=== PATIENT | female | born 2000 | race Caucasian/White ===

== ENCOUNTER 2020-03-11 15:28 | Outpatient (CLI) | payer OTHER ==
[~2020-03-11] VITALS: Ht 154.9 cm; Wt 54.0 kg
[2020-03-11] MEDS ORDERED: PRENTAB9 PO (15:56)
[2020-03-11] MEDS ORDERED: MAPA500T2 PO (15:56)
[2020-03-11] MEDS ORDERED: ZOFR4TAB16 PO (15:56)
[2020-03-11 17:18] LABS: APPEARANCE, URINE HAZY (CLEAR); BACTERIA, URINE AUTO NEGATIVE (NEGATIVE); BILIRUBIN, URINE AUTO NEGATIVE (NEGATIVE); BLOOD, URINE BLOOD NEGATIVE (NEGATIVE); COLOR, URINE YELLOW (YELLOW); GLUCOSE, URINE (UA) AUTO NEGATIVE (NEGATIVE); KETONE, URINE AUTO NEGATIVE (NEGATIVE); LEUKOCYTE ESTERASE, URINE AUTO 3+ (NEGATIVE); NITRITE, URINE AUTO NEGATIVE (NEGATIVE); PROTEIN, URINE AUTO NEGATIVE (NEGATIVE); RBC, URINE AUTO 4 /HPF (0-3); SQUAMOUS EPITHELIAL CELL UR AU 10 /HPF (0-6); UROBILINOGEN, URINE AUTO 0.2 mg/dL (0.0-2.0); WBC, URINE AUTO 3 /HPF (0-3)
--- NOTE | 2020-03-11 17:58 | IPNPDOC ---
Text Note Date of Service The patient was seen on 03/11/20. NOTE patient is a 19 yo @22+2wks gestation presents with concern for feeling lower abdominal cramping and vaginal pressure since this AM. denies LOF/VB. +FM. vitals: normal NAD ABD: gravid, soft, nt le: no edema/erythema/tenderness speculum: clumpy green discharge, no lesion, nt cervix visually long and closed, no lesion, non tender doptone: 150's toco: quiet Laboratory Tests 03/11/20 16:10: Urine Color YELLOW, Urine Appearance HAZY, Urine pH 7.0, Urine Specific Tatum 1.010, Urine Protein NEGATIVE, Urine Glucose (Auto)(UA) NEGATIVE, Urine Ketones (Auto) NEGATIVE, Urine Blood NEGATIVE, Urine Nitrite NEGATIVE, Urine Bilirubin NEGATIVE, Urine Urobilinogen 0.2, Urine Leukocyte Esterase (Auto) 3+H, Urine WBC (Auto) 3, Urine RBC (Auto) 4H, Urine Hyaline Casts (Auto) 0, Urine Bacteria (Auto) NEGATIVE, Urine Squamous Epithelial Cells 10, Urine Sperm (Auto) 03/11/20 17:34: Chlamydia trachomatis DNA (SOTERO) [Pending], Neisseria gonorrhoeae DNA (SOTERO) [Pending], Trichomonas vaginalis (PCR) [Pending] Microbiology 03/11/20 Wet Prep - Final, Complete wet prep: pos clue cells and pos yeast a/p patient is a 19 yo @ 22+2wks with vaginal yeast and bacterial vaginosis. treat with diflucan and flagyl. return precautions given. f/u with regularly scheduled clinic appointment. DO KELLY Falcon LUAT N. DO Mar 11, 2020 17:31
[2020-03-11] MEDS ORDERED: metroNIDAZOLE (FLAGYL) 500 MG TAB PO ONE (18:00)
[2020-03-11] MEDS ORDERED: FLUCONAZOLE 50MG TABLET PO ONE (18:00)
[2020-03-11 19:42] LABS: CHLAMYDIA DNA AMPLIFICATION NEGATIVE (NEGATIVE); GC DNA AMPLIFICATION NEGATIVE (NEGATIVE)
== END 2020-03-11 18:24 | disposition home or self-care (01) ==
LOC: M LDO 15:28
PROVIDERS: ATTEND Advanced Practice Midwife
DX: O26.892 Other specified pregnancy related conditions, second trimester (principal); R10.30 Lower abdominal pain, unspecified; O23.592 Infection of other part of genital tract in pregnancy, second trimester; Z3A.22 22 weeks gestation of pregnancy
CPT/HCPCS: 81001; 87086; 87210; 87661; G0378; G0463

== ENCOUNTER 2020-03-29 00:17 | Outpatient (CLI) | payer OTHER ==
[~2020-03-29] VITALS: Ht 154.9 cm; Wt 125.0 kg
[2020-03-29] VITALS (9 sets, daily range): BP systolic 95–114; BP diastolic 44–82
[~2020-03-29 00:17] MED LIST: MAPA500T2 PO; PRENTAB9 PO; ZOFR4TAB16 PO
[2020-03-29 00:59] LABS: APPEARANCE, URINE CLEAR (CLEAR); BACTERIA, URINE AUTO NEGATIVE (NEGATIVE); BILIRUBIN, URINE AUTO NEGATIVE (NEGATIVE); BLOOD, URINE BLOOD NEGATIVE (NEGATIVE); COLOR, URINE YELLOW (YELLOW); GLUCOSE, URINE (UA) AUTO NEGATIVE (NEGATIVE); KETONE, URINE AUTO NEGATIVE (NEGATIVE); LEUKOCYTE ESTERASE, URINE AUTO 1+ (NEGATIVE); MUCUS, URINE SMALL (NEGATIVE); NITRITE, URINE AUTO NEGATIVE (NEGATIVE); PROTEIN, URINE AUTO NEGATIVE (NEGATIVE); RBC, URINE AUTO 1 /HPF (0-3); SPECIFIC GRAVITY URINE AUTO 1.019 (1.002-1.035); SQUAMOUS EPITHELIAL CELL UR AU 1 /HPF (0-6); UROBILINOGEN, URINE AUTO 0.2 mg/dL (0.0-2.0); WBC, URINE AUTO 5 /HPF (0-3)
--- NOTE | 2020-03-29 01:57 | REPVR ---
PROCEDURE INFORMATION: Exam: US Retroperitoneal Limited, Kidneys Exam date and time: 03/29/2020 1:40 AM Age: 19 years old Clinical indication: Pain; Other: Back; ; Additional info: 19yo 24wk preg back pain, HX R stent in prior preg TECHNIQUE: Imaging protocol: Real-time ultrasound of the retroperitoneum with image documentation. Examination was focused on the kidneys. COMPARISON: No relevant prior studies available. FINDINGS: Right kidney: No stones. No hydronephrosis. Left kidney: No stones. No hydronephrosis. Uterus: heart rate 160 bpm. Cervix closed 2.8 cm. Bladder: Unremarkable bladder. IMPRESSION: Unremarkable kidneys. Electronically signed by: Perry Henriquez On 03/29/2020 01:56:59 AM
[2020-03-29] MEDS ORDERED: diphenhydrAMINE 25MG CAP PO ONE (03:45)
[2020-03-29] MEDS ORDERED: BETAMETHASONE SOLUSPAN 6MG/ML 5ML VIAL (J0702 PER 3MG) IM SCH (03:45)
[2020-03-29] MEDS ORDERED: NIFEdipine 10 MG CAP PO PRN (03:45)
[2020-03-29] MEDS ORDERED: ONDANSETRON 4MG/2ML VIAL IV PRN (03:45)
[2020-03-29] MEDS ORDERED: TERBUTALINE SULFATE 1 MG/ML VIAL (J3105) SC SCH (03:45)
[2020-03-29] MEDS ORDERED: ACETAMINOPHEN TAB 650MG DOSE (2X325MG) PO PRN (03:45)
[2020-03-29] MEDS ORDERED: NIFEdipine 10 MG CAP PO ONE (03:45)
[2020-03-29 04:08] LABS: BASO # 0.1 10^3/uL (0.0-0.2); BASO % 0.4 % (0.0-1.0); EOS # 0.2 10^3/uL (0.0-0.5); HEMATOCRIT 25.7 % (36.0-47.0); HEMOGLOBIN 8.3 g/dl (12.0-15.5); LYMPH # 3.6 10^3/uL (1.5-5.0); LYMPH % 20.8 % (24.0-44.0); MEAN CORPUSCULAR HEMOGLOBIN 28.7 pg (27.0-33.0); MEAN CORPUSCULAR HGB CONC 32.3 g/dl (32.0-36.5); MEAN CORPUSCULAR VOLUME 88.9 fl (80.0-96.0); MONO % 5.7 % (0.0-5.0); NEUTROPHILS # 12.3 10^3/uL (1.5-8.5); NEUTROPHILS % 71.4 % (36.0-66.0); PLATELET COUNT, AUTOMATED 238 10^3/uL (150-450); RED BLOOD COUNT 2.89 10^6/uL (4.00-5.40); WHITE BLOOD COUNT 17.2 10^3/uL (4.0-10.0)
--- NOTE | 2020-03-29 05:16 | REPVR ---
PROCEDURE INFORMATION: Exam: US TRANSABD PLUS DETAILED EVAL FIRST GEST and US , Transvaginal Exam date and time: 03/29/2020 4:43 AM Age: 19 years old Clinical indication: Lmp or gestational age (in weeks): 24w 6d; Labor and delivery abnormalities; Pre-term labor; Without delivery; ; Additional info: 19yo w/siup 24w2d with ptl, no anatomy scan yet TECHNIQUE: Imaging protocol: Real-time transabdominal obstetrical ultrasound of the maternal pelvis and a first trimester with image documentation. COMPARISON: RENAL US 2020-03-29 01:20 FINDINGS: Gestation: Single living intrauterine gestation. Heart rate: 147 bpm. Presentation: Breech presentation Placenta: Unremarkable. No subchorionic bleed. Placenta is anterior. Amniotic fluid: Amniotic fluid is normal for gestational age. ANATOMY: Cerebellum: Normal Cisterna magna: Normal Cerebral ventricles: Normal Upper lip and nose: Normal Heart four-chamber view, heart size and position: Partially obscured, RVOT not seen due to lie. impression. Kidneys: Normal Stomach: Normal Bladder: Normal Umbilical cord vessel number: Normal three-vessel cord Spine: Normal Arms and legs: Normal Gender: Female BIOMETRY: Estimated gestational age: 24 weeks and 3 days Estimated due date: 07/16/2020 Estimated weight: 689 g corresponding to 1 lb and 8 oz, 30% tile Biparietal diameter: 5.9 cm corresponding to 24 weeks and 1 day. Head circumference: 22.2 cm corresponding to 24 weeks and 2 days MATERNAL ANATOMY: Uterus: Unremarkable. Cervix: The cervix image transvaginally measures 1.1 cm with funneling of the cervix noted measuring 2 x 1.5 cm. Right adnexa: Ovary is obscured by overlying bowel gas. Left adnexa: Ovary is obscured by overlying bowel gas. IMPRESSION: 1. Single live intrauterine gestation. 2. The cervix image transvaginally measures 1.1 cm with funneling of the cervix noted measuring 2 x 1.5 cm. Electronically signed by: Perry Henriquez On 03/29/2020 05:16:25 AM
[2020-03-29 05:17] LABS: CHLAMYDIA DNA AMPLIFICATION NEGATIVE (NEGATIVE); GC DNA AMPLIFICATION NEGATIVE (NEGATIVE)
[2020-03-29] MEDS ORDERED: LR 1,000 ML IV SCH (07:55)
[2020-03-29] MEDS ORDERED: VANCOMYCIN HCL 1,000 MG, VIAL MATE ADAPTER 1 EACH in D5W 250 ML IV SCH (08:00)
[2020-03-29] MEDS ORDERED: MAG Sulf (L&D) 4 GM/100 ML 4 GM in IV 1 EA IV ONE (08:00)
[2020-03-29] MEDS ORDERED: VANCOMYCIN HCL 1,000 MG, VIAL MATE ADAPTER 1 EACH in D5W 250 ML IV STA (08:00)
[2020-03-29] MEDS ORDERED: MAG Sulf (OBGYN) 20GM/500ML 20,000 MG in IV 1 EA IV SCH ×2 (08:15→09:15)
--- NOTE | 2020-03-29 08:42 | HPE ---
DATE OF ADMISSION: 03/29/2020 This girl is a 19-year-old 2, para 1, last medical period (LMP) 09/19/2019 estimated date of confinement (EDC) July 13, 2020 based on an early ultrasound at 10 weeks 0 days. She is presently a 24 and 6 weeks of gestation. Was seen 12 hours ago with low back pain, lower abdominal pain, which was felt to be at that time a kidney stone. She had a previous history of kidney stones in her last . She has short interval gestation. She delivered at 37 weeks, April 2019, a live 6 pounds 6 ounces. After having had multiple kidney stones with a stent, she had labor at 30 weeks which was suppressed until 37 weeks. She is Rh negative. Has not received RhoGAM at the present time. When she arrived there was some minimal to mild contractions. She had a urine done indicating specific gravity 1.019, all was negative. She had a little bit of leukocyte esterase trace 1+, 5 white cells, lot of mucus. No bacteria. Her CBC: Her hemoglobin was 8.3, hematocrit 25.7 and platelets were 238. Her vital signs on admission temperature 97.4, subsequently her temperatures have been normal at 97.1. Her blood pressure is 108/67. Her pulse was 108 and her respirations are 18. She had a ultrasound initially which showed good jets. No evidence of kidney stone and it was breech presentation with placenta anterior. No subchorionic bleeding. Appropriate interval 24 and 2 weeks of gestation, estimated weight was 689 grams 1 pound 8 ounces. On examination of the cervix by ultrasound transvaginally, it was 1.1 cm with some funneling. The noted lengths previously was 2 cm. BAKARI was within normal limits. She has good reactive strip for 24 weeks and 6 days, minimal uterine irritability. She was given terbutaline, which resolved some of the cramping in her lower back. She is Rh negative O. She has been COVID tested pending the results. She has no symptoms of COVID-19. She was given betamethasone mag sulfate 4 grams for neural prophylaxis and vancomycin one dose as she had an allergic reaction with rash when she was much younger and the safer route was the vancomycin. GBS culture is pending weeks. We explained the risks and benefits to the patient about staying here versus going to [place]. We discussed the case with Dr. Daly who accepted the patient. We will re-evaluate the patient's cervix prior to leaving for [place]. Both the patient and , over the phone, expressed understanding of the reason for transfer and the risks for transfer and the benefits. We now await [facility] transport.
--- NOTE | 2020-03-29 08:52 | IPNPDOC ---
Text Note Date of Service The patient was seen on 03/29/20. NOTE Late entry- see Dr. Ross's dictated note for final plan of care after anatomy scan was performed and patient continued to have ctx (transfer to [place]) Triage Note, decision for Observation vs Admission Seferino is a 19yo with SIUP at 24w2d presenting with "low back pain that feels similar to the pain I had previously when I needed a stent for kidney stones in my prior ". She states the pain started suddenly and woke her from sleep, about an hour before she called me and I instructed her to come in. The pain is in her low back (where she points) and is constant, does not radiate. She has had no LOF, no contractions that she feels, has good movement, no vaginal bleeding. No fevers/chills. No pain with urination. No abnormal vaginal discharge. She has hx of prior term delivery at 37wk a year ago (though they "stopped my labor a few times when I was pre-term"). 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): 2/50/high SSE (done after SCE given concerning exam): NEFG, normal appearing physiologic vaginal discharge, cervix visually 2cm dilated (membranes seen through os), swab obtained for OLGA LIDIA/WP and GBS swab performed NST: reassuring for gestational age with bl 140, +accels, -decels, mod georgette Loyall: irregular ctx vs uterine irritability Labs: Urinalysis- no blood, 5 WBC, small leuk esterase, no bacteria, negative nitrite OLGA LIDIA/WP performed by me: no evidence of trichomonas, budding yeast/hyphae or clue cells Radiology: Renal ultrasound- no e/o hydronephrosis or nephrolithiasis bilaterally, cervical length done transabdominally 2.8cm Assessment: Seferino is a 19yo with SIUP at 24w2d with atypical presentation of PTL (back discomfort) having negative workup for nephrolithiasis (which she had in prior ), but having cervical dilation 2/50/high with membranes visible through cervix on SSE. No evidence of infection of urine or vagina. Reassuring status. Vitals wnl. Plan: -Discussed with patient plan for observation vs admission at this time given concern for PTL -Patient has not had anatomy scan yet and I would like growth scan, so ordered this with cervical length -Betamethasone 12mg IM x1 now and repeat in 24hr -Terbutaline x1 dose SQ now -Nifedipine 20mg PO now and repeat 10mg Q6hr prn in the setting of ctx -Will hold off on IV abx and MgSO4 unless it looks like patient is progressing in PTL -CBC, type and screen, syphilis labs -Regular diet for now -PNV daily, zofran prn nausea, tylenol prn pain, benadryl prn insomnia -urine culture pending -GBS pending -Safe to proceed Dr. Alison Shook MD VS,Jamaal, I+O VS, Jamaal I+O Laboratory Tests 03/29/20 03:52 Vital Signs Date Time Temp Pulse Resp B/P (MAP) Pulse Ox O2 Delivery O2 Flow Rate FiO2 03/29/20 07:27 97.1 121 18 107/65 (79) Alison Shook MD March 29, 2020 08:52
[2020-03-29] MEDS ORDERED: PRENATAL VITAMINS CHEWABLE TABLET PO SCH (09:00)
[2020-03-29] MEDS ORDERED: NS 1,000 ML IV SCH (09:15)
== END 2020-03-29 09:50 | disposition short-term general hospital (02) ==
LOC: M LDO 00:17
PROVIDERS: ATTEND Obstetrics & Gynecology
DX: O26.892 Other specified pregnancy related conditions, second trimester (principal); M54.5 Low back pain; O26.872 Cervical shortening, second trimester; O60.12X1 Preterm labor second trimester with preterm delivery second trimester, fetus 1; Z3A.24 24 weeks gestation of pregnancy
CPT/HCPCS: 59025; 76775; 76811; 76817; 81001; 85025; 86780; 86850; 86900; 86901; 87081; 87086; 87491; 87591; 96372; 96374; 96375; G0378; G0463; J0702; J3105; J3370; J3475; U0002

== ENCOUNTER 2020-04-18 18:07 | Outpatient (CLI) | payer OTHER ==
--- NOTE | 2020-04-18 18:47 | IPNPDOC ---
Text Note Date of Service The patient was seen on 04/18/20. NOTE patient is a 19 yo @ 27+5wks gestation presents with concern for decreased movement since this AM. patient had some discharge yesterday that resolved. She denies cramping/vb/lof/discharge today. denies recent coitus. patient had admission @ 24wks with concern for shortened cervix. vitals: normal NAD abd: gravid, soft, nt back nttp fht: 145/mod georgette/pos accel/no decel Pixley: quiet a/p patient is @ 27+5wks, doing well, NST reassuring for gestational age. counseled patient on continue with light activities and vaginal rest. return precautions given. f/u in clinic as scheduled. DO KELLY Falcon LUAT N. DO April 18, 2020 18:47
== END 2020-04-18 18:50 ==
LOC: M LDO 18:07
PROVIDERS: ATTEND Obstetrics & Gynecology
DX: O36.8120 Decreased fetal movements, second trimester, not applicable or unspecified (principal); Z3A.27 27 weeks gestation of pregnancy
CPT/HCPCS: G0378; G0463

== ENCOUNTER → 2020-04-21 | Outpatient (CLI) | payer OTHER ==
--- NOTE | 2020-04-22 07:09 | REP ---
Clinical: Anatomical evaluation. Comparison: 02/28/2020 . Findings: Examination demonstrates a single live intrauterine in cephalic presentation. motion is identified by technologist. Placenta is noted posterior/fundal and grade zero without evidence for placenta previa or abruption. Amniotic fluid volume is normal. Cervix measures 1.1 cm in length and appears closed. No evidence for nuchal cord. Gestational age by LMP 28 weeks 1 day with DONNY 07/13/2020 . Gestational age by current measurements 28 weeks 2 days with DONNY 07/12/2020 . FHR equals 147 beats per minute. Amniotic fluid index: 14.0 cm Estimated weight 1214 grams ( 48th percentile). Anatomical assessment demonstrates normal structures including cranium, choroid plexus, cavum, cerebellum/posterior fossa, facial features, lungs, four-chamber heart/ventricular outflow tracts, diaphragm, stomach, cord insertion/three-vessel cord, kidneys/bladder, spine, and extremities. Impression: 1. Closed cervical length of the 1.1 cm noted. 2. Anatomical assessment is complete and normal. Electronically Signed by Armani Mazariegos MD 04/22/2020 07:00 A
== END ==
LOC: M RAD 07:47
PROVIDERS: ATTEND Obstetrics & Gynecology
DX: Z36.89 Encounter for other specified antenatal screening (principal); Z3A.28 28 weeks gestation of pregnancy

== ENCOUNTER 2020-05-03 11:55 | Outpatient (CLI) | payer OTHER ==
[~2020-05-03] VITALS: Ht 154.9 cm; Wt 54.2 kg
[2020-05-03 12:23] VITALS: BP 104/63
--- NOTE | 2020-05-03 14:05 | REP ---
Clinical: Possible ruptured membranes. Comparison: None . Findings: Examination demonstrates a single live intrauterine in cephalic presentation. motion is identified by technologist. Placenta is noted posterior and grade I without evidence for placenta previa or abruption. Amniotic fluid volume is normal. Cervix measures 1.1 cm in length. No evidence for nuchal cord. Gestational age by LMP 29 weeks 6 days with DONNY 07/13/2020 . FHR equals 144 beats per minute. Amniotic fluid index: 16.0 cm Umbilical cord SD ratio: 2.16 (2.50 - 3.50) Impression: Incompetent cervix measuring 11 mm. Amniotic fluid volume within normal limits. Electronically Signed by Armani Mazariegos MD 05/03/2020 01:58 P
[2020-05-03] MEDS ORDERED: SYNT25TA PO (14:55)
[2020-05-03] MEDS ORDERED: MAGNESIUM *L&D* 4GM/100ML BAG (40MG/ML) As Ordered ONE (15:34)
[2020-05-03] MEDS ORDERED: VANCOMYCIN 1000MG/20ML VIAL As Ordered ONE (15:34)
[2020-05-03 15:43] LABS: HEMATOCRIT 30.5 % (36.0-47.0); HEMOGLOBIN 9.9 g/dl (12.0-15.5); MEAN CORPUSCULAR HEMOGLOBIN 30.1 pg (27.0-33.0); MEAN CORPUSCULAR HGB CONC 32.5 g/dl (32.0-36.5); MEAN CORPUSCULAR VOLUME 92.7 fl (80.0-96.0); PLATELET COUNT, AUTOMATED 177 10^3/uL (150-450); RED BLOOD COUNT 3.29 10^6/uL (4.00-5.40); WHITE BLOOD COUNT 13.5 10^3/uL (4.0-10.0)
[2020-05-03] MEDS ORDERED: VANCOMYCIN HCL 1,000 MG, VIAL MATE ADAPTER 1 EACH in D5W 250 ML IV ONE (15:45)
[2020-05-03] MEDS ORDERED: VANCOMYCIN 1000MG/20ML VIAL IV ONE (15:45)
[2020-05-03] MEDS ORDERED: MAGNESIUM *L&D* 4GM/100ML BAG (40MG/ML) IV ONE (15:45)
--- NOTE | 2020-05-03 16:15 | HPE ---
DATE OF ADMISSION: 05/03/2020 This lady is a 19-year-old, 2, para 1, last menstrual period (LMP) 09/19/2019, estimated date of confinement (EDC) 07/13/2020, at 29 and 6 weeks of gestation with history of spontaneous rupture of membranes. No contractions. Risk factors is she is hypothyroid, anemic. She has depression. She has had spontaneous rupture of membranes and she has had a shortened cervix since 24 weeks, 1.1 cm PAST HISTORY: April of 2019, 37 weeks, delivered a live . Had a stent in because of kidney stones. She had short interval . Labs are O negative, HIV negative, hepatitis negative, RPR negative. Varicella immune. Urine is mixed belkis. Gonorrhea and chlamydia ARE negative. She did not do her 1-hour GTT. On 03/29/2020, she was in labor and delivery because of query kidney stone. She was worked up but did not have any kidney stone. Had some at labor. Ultrasound revealed shortened cervix of 1.1 cm with no funneling. She was given terbutaline, given betamethasone, given vancomycin (she is ALLERGIC TO PENICILLIN) and 4 grams of magnesium sulfate for neuro prophylaxis. She was then transferred up to [place] for 8 days, after which time they sent her home. She came in this afternoon with questionable rupture of membranes. On examination, symphysis fundus height is 29, vertex presenting. Category 1 strip on ultrasound. No contractions were noted. Sterile speculum examination, Nitrazine was positive, fern was positive. She had wetness on her underwear, which also was Nitrazine positive. We did an ultrasound. Indicated a vertex presentation, heart at 144, active. The amniotic fluid index (BAKARI) subjectively was normal and it was approximately 15 cm. Cervix was again 1.1 cm with questionable funneling although was not able to tell vertex presenting. Her blood pressure 104/63, respirations 18, pulse 146, temperature 97.2. COVID status testing was done and questionnaire was negative. We discussed transfer of care of this patient with [facility] who are willing to accept her, Dr. Daly to labor and delivery. We initiated vancomycin 1000 mg IV because of premature rupture of membranes, magnesium sulfate 4 grams IV times one dose for neuro prophylaxis. She still is probably covered for betamethasone having had two doses prior to leaving [place], and COVID testing is pending. In summary, we have a with premature rupture of membranes not in active labor for transfer to [facility]. CAESAR
[2020-05-04] MEDS ORDERED: ZOLO50TA PO (01:04)
[2020-05-04] MEDS ORDERED: VITA500C24 PO (01:40)
[2020-05-04] MEDS ORDERED: IRON1TAB2 PO (01:42)
== END 2020-05-03 16:52 | disposition other institution (70) ==
LOC: M LDO 11:55
PROVIDERS: ATTEND Obstetrics & Gynecology
DX: O26.893 Other specified pregnancy related conditions, third trimester (principal); N89.8 Other specified noninflammatory disorders of vagina; O34.33 Maternal care for cervical incompetence, third trimester; O42.913 Preterm premature rupture of membranes, unspecified as to length of time between rupture and onset of labor, third trimester; Z3A.29 29 weeks gestation of pregnancy
CPT/HCPCS: 36415; 59025; 76815; 76820; 85027; 86850; 86900; 86901; 96365; 96375; G0378; G0463; J3370; J3475; U0002

== ENCOUNTER 2020-05-04 00:38 | Inpatient (IN) | payer OTHER ==
[2020-05-04] VITALS (39 sets, daily range): BP systolic 64–114; BP diastolic 36–74
[~2020-05-04] VITALS: Ht 154.9 cm; Wt 56.7 kg
[~2020-05-04 00:38] MED LIST changes: +SYNT25TA PO
[2020-05-04] MEDS ORDERED: ZOLO50TA PO (01:04)
[2020-05-04] MEDS ORDERED: VITA500C24 PO (01:40)
[2020-05-04] MEDS ORDERED: IRON1TAB2 PO (01:42)
[2020-05-04] MEDS: LR 1,000 ML IV SCH ×3 (02:09→19:25)
[2020-05-04] MEDS ORDERED: LACTATED RINGER'S 1000 ML IV ONE (02:45)
[2020-05-04] MEDS ORDERED: MAG Sulf (OBGYN) 20GM/500ML 20,000 MG in IV 1 EA IV SCH (03:00)
[2020-05-04] MEDS: AZITHROMYCIN INJ 500 MG, VIAL MATE ADAPTER 1 EACH in D5W 250 ML IV SCH (04:14)
[2020-05-04 06:59] LABS: HEMATOCRIT 26.4 % (36.0-47.0); HEMOGLOBIN 8.6 g/dl (12.0-15.5); MEAN CORPUSCULAR HEMOGLOBIN 30.3 pg (27.0-33.0); MEAN CORPUSCULAR HGB CONC 32.6 g/dl (32.0-36.5); PLATELET COUNT, AUTOMATED 153 10^3/uL (150-450); RED BLOOD COUNT 2.84 10^6/uL (4.00-5.40); WHITE BLOOD COUNT 11.5 10^3/uL (4.0-10.0)
--- NOTE | 2020-05-04 08:00 | HPE ---
DATE OF ADMISSION: 05/04/2020 This lady is a 19-year-old, 2, para 1, last menstrual period (LMP) 09/19/2019, and expected date of confinement (EDC) is 07/13/2020, presently at 30 weeks of gestation with a history of spontaneous rupture of membrane. She had no contractions. Risk Factors: She initially thought she was hypothyroid, however, she was investigated and found to be euthyroid. She was anemic, taking iron and vitamin C. She has episodic dissociative disorder. She is on Zoloft 50 mg by mouth daily. She had a shortened cervix since 24 weeks, it was 1.1 cm. On her past history, in April 2019 at 37 weeks, delivered a live infant; had a stent in because of a kidney stone and she had a short interval , this was in 2018. Her labs are O negative. HIV negative. Hepatitis negative. RPR negative. Rubella immune. Varicella immune. Urine had mixed belkis. Gonorrhea and chlamydia were negative. She did not have her 1-hour glucose tolerance test. On 03/29/2020, she was in labor and delivery because of query kidney stone. She was worked up and showed she had normal jets and normal kidneys, no blood in the urine, but she did have some labor and therefore an ultrasound was performed and revealed that she had a short cervix of 1.1 cm with no funneling. She was given terbutaline with occasional intermittent contractions. She was given betamethasone and vancomycin as she is allergic to penicillin. She was given 4 grams loading dose for neuro prophylaxis. She was transferred to [place] and she remained there for 8 days after which time she was sent home. She was seen one visit at the clinic on 03/30/2020 and had no issues. Today when she comes in, she was not wearing a pad, but her underwear were damp. She had a symphysis fundus height of 29, vertex presenting. Category one strip. No contractions noted. On sterile speculum examination, Nitrazine was positive, fern was positive She had wetness on her pad and it was Nitrazine positive. She had an ultrasound which indicated it was vertex. heart was 144. Amniotic fluid index was 16. Cervix was 1.1 cm, questionable funneling, although we are not able to tell because of the vertex against the cervix. She was afebrile at 97.2, blood pressure 104/63, respirations 18, pulse 146. COVID negative at the time. We then had a discussion with [facility] and they were willing to accept her to labor and delivery. We initiated another round of vancomycin 1000 mg IV because of rupture of membranes and magnesium sulfate 4 grams was given one loading dose. She was probably still covered by her betamethasone, having had two doses prior to leaving [place] 8 days later. She was then transferred by ambulance to the labor and delivery unit. En route, she developed some severe itching because of the vancomycin, which she had not had previously. She was given IV Benadryl which resolved the issue. She had a gross amniotic fluid leaking through her underwear and was confirmed by the nurse. She was then readmitted to [facility]. On arrival at [facility], she had a reactive NST and apparently was negative for Nitrazine, pooling or ferning. The cervix appeared to be 1 cm dilated. BAKARI done at [place] was 14.4, vertex presenting. She did describe some abdominal tightenings. Magnesium sulfate at 2 grams an hour was started for neuro prophylaxis. Her problem list there was threatened labor, short interval , bipolar disorder, depression, anxiety, previous history kidney stones, and she is Rh negative. GBS was negative for swab on 03/30/2020. Her BMI is 22.7. While there, she was monitored. No decelerations. Category one strip. She then apparently decided to sign herself out against medical advice (AMA) and she left by transport by her to the hospital here at [facility] who dropped her off. Therefore, she is readmitted to [facility] Labor and Delivery. On evaluation presently, her blood pressure is 94/56, respirations are 18, pulse 121, temperature 97.5. She has occasionally intermittent irritability, vertex presenting. Category one strip. We had a long discussion with the patient regarding her choice of leaving AMA and the risk factors imposed by that to the baby. She did not seem to have any opinion regarding that; however, she was told that protective health services may be involved in her decision to leave [facility], risking her intrauterine fetus, and possibly them looking further into her home life regarding her 1-year-old. I had discussed with her whether she is concerned about having look after the 1-year-old at home; however, she said no, she has good support system and her mother is coming to stay with the baby. I also reemphasized that the best option would be to be at [place] for the baby because of the extreme prematurity. She did not have an opinion regarding that either. At the present time, we have her on the monitor. She has sequential prophylaxis. We started her on 2 grams of azithromycin every 24 hours, magnesium for neuro prophylaxis 2 grams an hour for 24, and repeated her CBC. Her white count was 13.5. Her hemoglobin was 9.9, hematocrit was 30.5 and platelets were 177. We have repeated her blood work for 0800 hours. We are repeating the ultrasound for BAKARI. She is wearing a pad presently. We will test for Nitrazine. The plan of management is to maintain her here until we are forced into delivery with prophylaxis - neuro prophylaxis and antibiotic prophylaxis. Again, we reiterated to her that she is not optimizing the best care for her baby being here again, she had no opinion. In regards to her episodic dissociative disorder, the plan of management was minimal medications. She will be on Zoloft 50 by mouth daily, psychotherapy and modified environment at home. We will notify neonatology of the decision that she made to stay here and they will make arrangements for transport of the baby should the baby require transport. We spent well over an hour in discussion with this patient CAESAR
[2020-05-04] MEDS ORDERED: ASCORBIC ACID 500 MG TAB PO SCH (09:00)
[2020-05-04] MEDS ORDERED: FERROUS SULFATE 325MG TAB PO SCH (09:00)
[2020-05-04] MEDS: SERTRALINE HCL 50 MG TAB PO SCH (09:48)
[2020-05-04] MEDS: DOCUSATE SODIUM 100 MG CAP PO SCH ×2 (09:48→20:33)
--- NOTE | 2020-05-04 11:01 | REP ---
OBSTETRIC SONOGRAPHY: HISTORY: Followup premature rupture of membranes. BAKARI, weight. OBSTETRIC SONOGRAPHIC FINDINGS: Scanning through the gravid uterus demonstrates a single living intrauterine gestation in a cephalic lie. motion is observed and heart rate is recorded at 151 beats per minute. A posterior grade 0 placenta is seen without evidence of previa or abruption. Amniotic fluid is subjectively normal. No extrauterine abnormalities observed. There has been appropriate interval growth. The following anatomic structures are identified and felt to be unremarkable: cranium, choroid plexus, cavum, cerebellum and posterior fossa, face and profile, lungs, four-chamber heart with left ventricular outflow tract view, diaphragm, left-sided stomach, abdominal wall cord insertion, three-vessel cord, kidneys and bladder, spine. BIOMETRY CHART: BPD 7.6 cm = 30 weeks 3 days Head circumference 26.7 cm = 29 weeks 1 day Abdominal circumference 24.4 cm = 28 weeks 4 days Femur length 5.8 cm = 30 weeks 1 day Humeral length 5.0 cm = 29 weeks 2 days HC/AC ratio normal 1.10, cephalic index normal 0.81, estimated weight 1371 grams, 3 pounds 0 ounces, 27th percentile for 30 weeks 0 days. BAKARI normal 14.7 cm. S/D ratio in the umbilical cord artery by Doppler, normal 2.64. IMPRESSION: Viable single intrauterine gestation at 29 weeks 3 days by today's composite sonographic criteria. Expected gestational age estimate based on prior sonography is 29 weeks 4 days. Appropriate interval growth. DONNY by prior sonography, July 16, 2019. BAKARI normal 14.7 cm. Electronically Signed by Parish Bird MD 05/04/2020 12:28 P
[2020-05-04] MEDS: ASCORBIC ACID 500 MG TAB PO SCH (20:42)
[2020-05-04] MEDS: FERROUS SULFATE 325MG TAB PO SCH (20:42)
[2020-05-04] MEDS: diphenhydrAMINE 25MG CAP PO PRN (23:02)
[2020-05-05] VITALS (14 sets, daily range): BP systolic 84–123; BP diastolic 50–73
[2020-05-05] MEDS: LR 1,000 ML IV SCH (02:48)
[2020-05-05] MEDS: AZITHROMYCIN INJ 500 MG, VIAL MATE ADAPTER 1 EACH in D5W 250 ML IV SCH (04:19)
[2020-05-05 06:49] LABS: HEMATOCRIT 27.6 % (36.0-47.0); HEMOGLOBIN 8.9 g/dl (12.0-15.5); MEAN CORPUSCULAR HEMOGLOBIN 30.6 pg (27.0-33.0); MEAN CORPUSCULAR HGB CONC 32.2 g/dl (32.0-36.5); MEAN CORPUSCULAR VOLUME 94.8 fl (80.0-96.0); PLATELET COUNT, AUTOMATED 148 10^3/uL (150-450); RED BLOOD COUNT 2.91 10^6/uL (4.00-5.40); WHITE BLOOD COUNT 14.2 10^3/uL (4.0-10.0)
--- NOTE | 2020-05-05 07:14 | IPNPDOC ---
Text Note Date of Service The patient was seen on 05/05/20. NOTE S: No further leaking. Yesterday she had x1 of mucous discharge (nitrazine ne gative). + movement. No bleeding. No ctx. O: VS WNL ABD: Gravid, nontender Perineum: Dry LE: SCDS in place FHT: Category 1, 140s, reactive, no decels, no ctx US 05/04/2020: BAKARI 14.7 A/P: Patient is a 19yo 30.1wks with PPROM HD2. S/P beta series Receiving Azithro for prophylaxis (allergic to PCN and vanco) Daily US and CBC (have been stable so far but today's are pending) No magnesium sulfate for neuroprotection since patient didn't tolerate with hypotension. FeSO4 with colace for anemia. Fetus reassuring. Will continue observation. VS,Fishbone, I+O VS, Fishbone, I+O Laboratory Tests 05/04/20 06:44 Vital Signs Date Time Temp Pulse Resp B/P (MAP) Pulse Ox O2 Delivery O2 Flow Rate FiO2 05/04/20 11:30 97.3 98 18 110/57 (74) 05/04/20 01:00 98 Room Air I&O- Last 24 Hours up to 6 AM 05/04/20 06:00 Intake Total 255 ml Output Total 400 ml Balance -145 ml Rose Soares MD May 04, 2020 15:23
--- NOTE | 2020-05-05 08:42 | REP ---
Clinical: Premature rupture of membranes Comparison: 05/04/2020 Findings: Examination demonstrates a single live intrauterine in cephalic presentation. motion is identified by technologist. Placenta is noted posterior and grade 1 without evidence for placenta previa or abruption. Amniotic fluid volume is normal. No evidence for nuchal cord. Gestational age by LMP 30 weeks 1 day with DONNY 07/13/2020 . FHR equals 162 beats per minute. Amniotic fluid index: 13.8 cm Umbilical cord SD ratio: 3.00 Impression: single live intrauterine in cephalic presentation. Amniotic fluid volume and umbilical cord SD ratio are normal. Electronically Signed by Armani Mazariegos MD 05/05/2020 08:32 A
[2020-05-05] MEDS: DOCUSATE SODIUM 100 MG CAP PO SCH ×2 (11:25→21:00)
[2020-05-05] MEDS: FERROUS SULFATE 325MG TAB PO SCH ×2 (11:25→21:22)
[2020-05-05] MEDS: SERTRALINE HCL 50 MG TAB PO SCH (11:25)
[2020-05-05] MEDS: ASCORBIC ACID 500 MG TAB PO SCH ×2 (11:25→21:22)
[2020-05-05] MEDS ORDERED: SLF 3 ML SYR IV PRN (14:15)
[2020-05-05] MEDS: SLF 3 ML SYR IV SCH (16:54)
--- NOTE | 2020-05-05 19:28 | IPNPDOC ---
Text Note Date of Service The patient was seen on 05/05/20. NOTE accept care from [facility]. This lady is a 19-year-old, 2, para 1, last menstrual period (LMP) 09/19/2019, and expected date of confinement (EDC) is 07/13/2020 admitted at 30 wks gestation after patient signed out AMA from [place]. Patient was diagnosed with PPROM day prior and was transferred to [place]. She did not like to be far from home and decided to sign out AMA and checked herself back with this hospital. Patient had 24hrs of mag for neuroprotection and completed her steroid betamethasone course. She has a severe PCN allergy. During this admission, she was found to be allergic to Vancomycin. She was placed on Azithromycin 500mg IV daily. She had received 2 doses. GBS from mid March was negative. Since admission, patient has not continue to leak fluid. serial BAKARI has been stable around 13cm. patient is not yeyo, no cramping. Plan now is to start proper latency antibiotics due to allergy to PCN and Vancom ycin. patient already had azithromycin dosing. Start Gent and clinda IV for 48hrs. Then transistion to oral clindamycin for 5 days. Reexamine for continue leakage 48hrs from last vaginal check. get FFN. if patient stops leaking and BAKARI remains normal after IV antibiotics completed, consider sending patient home for outpatient management. patient also anemic. will get iron panel and ferritin with morning labs. recommend IV iron infusion after confirming iron def anemia. continue with BID NST and BAKARI as indicated. DO Terrie VS,Jamaal, I+O VS, Jaysone, I+O Laboratory Tests 05/05/20 06:38 Vital Signs Date Time Temp Pulse Resp B/P (MAP) Pulse Ox O2 Delivery O2 Flow Rate FiO2 05/05/20 18:05 98.3 104 16 119/64 (82) 05/04/20 18:58 98 Room Air I&O- Last 24 Hours up to 6 AM 05/05/20 06:00 Intake Total 4258 ml Output Total 2600 ml Balance 1658 ml MUNDO MENDOZA DO May 05, 2020 19:28
[2020-05-05] MEDS: CLINDAMYCIN 900 MG in IV 1 EA IV SCH (20:19)
[2020-05-05] MEDS: GENTAMICIN IV SCH (21:22)
[2020-05-05] MEDS: D5W IV SCH (21:22)
[2020-05-05] MEDS ORDERED: CLINDAMYCIN 150MG CAPSULE PO SCH (22:00)
[2020-05-05] MEDS: diphenhydrAMINE 25MG CAP PO PRN (22:45)
[2020-05-06] VITALS (15 sets, daily range): BP systolic 77–112; BP diastolic 40–59
[2020-05-06] MEDS: CLINDAMYCIN 900 MG in IV 1 EA IV SCH ×3 (03:57→19:00)
[2020-05-06] MEDS ORDERED: AZITHROMYCIN 250MG TABLET PO ONE (06:00)
[2020-05-06 07:02] LABS: BASO % 0.3 % (0.0-1.0); EOS # 0.1 10^3/uL (0.0-0.5); EOS % 0.7 % (0.0-3.0); HEMATOCRIT 28.9 % (36.0-47.0); HEMOGLOBIN 9.2 g/dl (12.0-15.5); LYMPH # 2.6 10^3/uL (1.5-5.0); LYMPH % 22.2 % (24.0-44.0); MEAN CORPUSCULAR HEMOGLOBIN 30.3 pg (27.0-33.0); MEAN CORPUSCULAR HGB CONC 31.8 g/dl (32.0-36.5); MEAN CORPUSCULAR VOLUME 95.1 fl (80.0-96.0); MONO # 0.8 10^3/uL (0.0-0.8); MONO % 6.4 % (0.0-5.0); NEUTROPHILS # 8.2 10^3/uL (1.5-8.5); NEUTROPHILS % 69.7 % (36.0-66.0); PLATELET COUNT, AUTOMATED 153 10^3/uL (150-450); RED BLOOD COUNT 3.04 10^6/uL (4.00-5.40); WHITE BLOOD COUNT 11.7 10^3/uL (4.0-10.0)
[2020-05-06 07:34] LABS: PERCENT SATURATION 30.1 % (13.2-45.0)
[2020-05-06] MEDS: SLF 3 ML SYR IV SCH ×2 (07:35→14:00)
[2020-05-06] MEDS: ASCORBIC ACID 500 MG TAB PO SCH ×2 (07:35→20:56)
[2020-05-06] MEDS: FERROUS SULFATE 325MG TAB PO SCH ×2 (07:35→20:56)
[2020-05-06] MEDS: SERTRALINE HCL 50 MG TAB PO SCH (07:35)
[2020-05-06] MEDS: DOCUSATE SODIUM 100 MG CAP PO SCH ×2 (07:37→21:00)
[2020-05-06] MEDS ORDERED: IRON SUCROSE 400 MG in NS 250 ML IV ONE ×2 (09:15→10:00)
[2020-05-06] MEDS ORDERED: IRON SUCROSE 25 MG in NS 23.75 ML IV ONE (10:00)
[2020-05-06] MEDS ORDERED: diphenhydrAMINE 50MG/ML VIAL (J1200) IV ONE (10:00)
[2020-05-06] MEDS ORDERED: IRON SUCROSE 375 MG in NS 250 ML IV ONE (11:00)
[2020-05-06] MEDS ORDERED: NS 1,000 ML IV PRN (13:15)
[2020-05-06] MEDS ORDERED: NS 1,000 ML IV SCH (17:00)
[2020-05-06] MEDS: GENTAMICIN IV SCH (20:00)
[2020-05-06] MEDS: D5W IV SCH (20:00)
[2020-05-06] MEDS: CLINDAMYCIN 150MG CAPSULE PO SCH (22:06)
[2020-05-06] MEDS: LACTOBACILLUS ACIDOPHILUS CAP (BACID) PO SCH (22:06)
[2020-05-06] MEDS: diphenhydrAMINE 25MG CAP PO PRN (22:08)
[2020-05-07 00:05] VITALS: BP 91/51
[2020-05-07 00:27] VITALS: BP 91/51
[2020-05-07 02:03] VITALS: BP 88/48
[2020-05-07 06:16] VITALS: BP 77/38
[2020-05-07] MEDS: CLINDAMYCIN 150MG CAPSULE PO SCH (06:16)
--- NOTE | 2020-05-07 07:58 | REPVR ---
PROCEDURE INFORMATION: Exam: US , Limited Exam date and time: 05/07/2020 6:04 AM Age: 19 years old Clinical indication: Lmp or gestational age (in weeks): 30; Other: Prom; ; Additional info: Bakari; Pprom at 30+2 weeks TECHNIQUE: Imaging protocol: Real-time ultrasound of the maternal uterus with image documentation. Exam focused on the clinical indication. COMPARISON: Obs. Limited, BAKARI US 05/05/2020 8:04 AM FINDINGS: Gestation: Single live intrauterine is seen. Heart rate: heart rate is detected at 139 beats per minutes. Presentation: Vertex presentation is noted. Placenta: The placenta is posterior in appears unremarkable with no gross evidence of retroplacental hemorrhage. There is no placenta previa. Amniotic fluid index: The amniotic fluid index is within normal range at 14 centimetres. ANATOMICAL SURVEY: anatomy: Anatomically survey was not performed on this exam. The stomach, urinary bladder and stomach as well as the diaphragm appear to be grossly unremarkable. DOPPLER: Umbilical artery Doppler: Low resistive waveform seen in the umbilical artery with peak systolic velocity of 36.9 centimeter/second, resistive index of 0.55 and SD ratio of 2.24 which is low for gestational age (50th percentile S/D ratio at 30 weeks is 2.83). MATERNAL: Cervix: The cervix is normal length measuring 3.2 centimetres. The endocervical canal is closed. Right adnexa: The right ovary is obscured by bowel gas. Left adnexa: The left ovary is obscured by bowel gas. IMPRESSION: Single live IUP of as described with normal amniotic fluid index. Electronically signed by: Chadwick Baldwin On 05/07/2020 07:58:13 AM
[2020-05-07 08:36] LABS: BASO % 0.2 % (0.0-1.0); EOS # 0.1 10^3/uL (0.0-0.5); EOS % 0.8 % (0.0-3.0); HEMATOCRIT 28.6 % (36.0-47.0); HEMOGLOBIN 9.4 g/dl (12.0-15.5); LYMPH # 2.3 10^3/uL (1.5-5.0); LYMPH % 15.8 % (24.0-44.0); MEAN CORPUSCULAR HGB CONC 32.9 g/dl (32.0-36.5); MEAN CORPUSCULAR VOLUME 94.4 fl (80.0-96.0); MONO # 0.8 10^3/uL (0.0-0.8); MONO % 5.9 % (0.0-5.0); NEUTROPHILS # 10.9 10^3/uL (1.5-8.5); NEUTROPHILS % 75.8 % (36.0-66.0); PLATELET COUNT, AUTOMATED 167 10^3/uL (150-450); RED BLOOD COUNT 3.03 10^6/uL (4.00-5.40); WHITE BLOOD COUNT 14.3 10^3/uL (4.0-10.0)
[2020-05-07] MEDS: LACTOBACILLUS ACIDOPHILUS CAP (BACID) PO SCH (08:58)
[2020-05-07] MEDS: ASCORBIC ACID 500 MG TAB PO SCH (08:59)
[2020-05-07] MEDS: DOCUSATE SODIUM 100 MG CAP PO SCH (08:59)
[2020-05-07] MEDS: FERROUS SULFATE 325MG TAB PO SCH (08:59)
[2020-05-07] MEDS: SERTRALINE HCL 50 MG TAB PO SCH (09:08)
--- NOTE | 2020-05-07 10:36 | IPN ---
DATE: 05/06/2020 This lady is 19-year-old female who has been in the hospital for a prolonged period of time at 30 weeks plus 1 day because of pre PROM and she was treated prophylactically with the pre PROM protocol. She has ALLERGIES to PENICILLIN and VANCOMYCIN. She was started on IV gentamicin and Cleocin, and the regime continued until her IV site scarred up from her iron transfusion and she no longer had an IV site. She refused to allow the nurses or anyone to restart her IV, and therefore, we were not able to give her gentamicin IV as per protocol. Her Cleocin was 900 IV, however, without the IV our best option is to give her 300 mg by mouth every 8 hours. She is already having diarrhea from the multiple IV antibiotics and having cramps. We elected to give her some probiotics in order to try and repopulate her lactobacilli and the best option would be 300 mg by mouth every 8 hours; 900 mg would be 6 tablets which would probably increase her cramps or diarrhea and her vomiting, and so despite an intense discussion with the patient regarding the reason for the antibiotic therapy she declined to allow us to start the IV. Therefore, probiotics plus 300 mg of Cleocin was commenced.
[2020-05-07 19:03] LABS: FOLATE 20.3 NG/ML (>5.4)
== END 2020-05-07 10:35 | disposition left against medical advice (07) | DRG 832 ==
LOC: M LDO 00:38 → M LDI 01:31 → M OBS 05-07 00:17
PROVIDERS: ADMIT Obstetrics & Gynecology; ATTEND Obstetrics & Gynecology
DX: O42.913 Preterm premature rupture of membranes, unspecified as to length of time between rupture and onset of labor, third trimester (principal); O26.872 Cervical shortening, second trimester; O26.873 Cervical shortening, third trimester; Z3A.30 30 weeks gestation of pregnancy; F31.9 Bipolar disorder, unspecified; F41.9 Anxiety disorder, unspecified; O99.343 Other mental disorders complicating pregnancy, third trimester

== ENCOUNTER 2020-06-04 21:53 | Outpatient (CLI) | payer OTHER ==
[~2020-06-04] VITALS: Ht 154.9 cm; Wt 57.9 kg
[~2020-06-04 21:53] MED LIST changes: +IRON1TAB2 PO; +VITA500C24 PO; +ZOLO50TA PO
[2020-06-04 22:04] VITALS: BP 105/62
[2020-06-04 22:10] VITALS: BP 108/75
[2020-06-04 23:18] VITALS: BP 98/66
--- NOTE | 2020-06-05 08:09 | HPE ---
DATE OF ADMISSION: 06/04/2020 This patient is a 19-year-old, 2, para 1, last menstrual period (LMP) 09/19/2019, and expected date of confinement (EDC) 07/13/2020. She is presently at 34 and 2 weeks of gestation and she said she thinks her membranes ruptured and she has some back pain. She was wearing a pad and she says it is damp and this is about 20 minutes now. She denies any contractions. Her risk factors is she is hypothyroid, she is anemic, she had depression, and she has a history of rupture of membranes with a shortened cervix at 24 weeks at 1.1 cm. Past History: April 2019, at 37 weeks, delivered a live infant. She had a stent in because of kidney stones and she has now a short interval . Labs: O negative. HIV negative. Hepatitis negative. RPR negative. Rubella immune. Varicella immune. Urine was mixed belkis. Gonorrhea and chlamydia negative. She did not do her 1-hour glucose tolerance test. When she was admitted, she had a workup and did not have a kidney stone. She had some labor. The ultrasound at that time was a shortened cervix at 1.1 cm, no funneling. She was given prophylactic terbutaline, betamethasone, and vancomycin as she is allergic to penicillin, and mag sulfate for neuro prophylaxis. She had subsequently been transferred to [place] after which time they sent her home and she came back today with questionable ruptured membranes. Presently, vital signs are blood pressure 98/66, respirations 16, pulse 106, and temperature is 98.9. She has a category one strip with moderate variability, normal baseline. No decelerations or accelerations were noted and occasional tightening of the uterus. Her specific gravity is 1.015, pH 5, negative for nitrites, trace for protein, glucose was normal, no ketones. A sterile speculum was performed. The cervix is anterior, again, this may be 1 cm. No pooling of amniotic fluid. Nitrazine was negative. No vaginal bleeding. She denies intercourse. Ferning was negative. No bacterial vaginitis (BV) or yeast was noted. We did a bedside ultrasound. Vertex presenting. heart rate is 144. Active movement of the baby. Spontaneous respirations. BAKARI was measured in two quadrants, 5.82 and 6.06, for a total of BAKARI of 11.88. This lady does not have ruptured membranes, actually has excellent amniotic fluid, vertex presenting, active fetus. She was discharged undelivered. She has a followup appointment in the office 4 days hence. The patient was discharged undelivered with precautions.
== END 2020-06-04 23:30 | disposition home or self-care (01) ==
LOC: M LDO 21:53
PROVIDERS: ATTEND Obstetrics & Gynecology
DX: O26.893 Other specified pregnancy related conditions, third trimester (principal); Z3A.34 34 weeks gestation of pregnancy
CPT/HCPCS: 59025; G0378; G0463

== ENCOUNTER → 2020-06-12 | Outpatient (CLI) | payer OTHER ==
[2020-07-28 15:00] LABS: APPEARANCE, URINE HAZY (CLEAR); COLOR, URINE YELLOW (YELLOW); GLUCOSE, URINE (UA) AUTO NEGATIVE (NEGATIVE); KETONE, URINE AUTO TRACE mg/dL (NEGATIVE); PROTEIN, URINE AUTO 1+ mg/dL (NEGATIVE); SPECIFIC GRAVITY URINE AUTO 1.026 (1.002-1.035); UROBILINOGEN, URINE AUTO 0.2 mg/dL (0.0-2.0)
[2020-07-28 15:01] LABS: BILIRUBIN, URINE AUTO NEGATIVE (NEGATIVE); BLOOD, URINE BLOOD NEGATIVE (NEGATIVE); LEUKOCYTE ESTERASE, URINE AUTO 1+ (NEGATIVE); MUCUS, URINE SMALL (NEGATIVE); NITRITE, URINE AUTO NEGATIVE (NEGATIVE); RBC, URINE AUTO 2 /HPF (0-3); SQUAMOUS EPITHELIAL CELL UR AU 5 /HPF (0-6); WBC, URINE AUTO 5 /HPF (0-3)
[2020-07-29 09:24] LABS: BASO % 0.2 % (0.0-1.0); EOS # 0.1 10^3/uL (0.0-0.5); EOS % 0.7 % (0.0-3.0); HEMATOCRIT 32.1 % (36.0-47.0); HEMOGLOBIN 10.7 g/dl (12.0-15.5); LYMPH # 2.7 10^3/uL (1.5-5.0); LYMPH % 16.5 % (24.0-44.0); MEAN CORPUSCULAR HEMOGLOBIN 30.8 pg (27.0-33.0); MEAN CORPUSCULAR HGB CONC 33.3 g/dl (32.0-36.5); MEAN CORPUSCULAR VOLUME 92.5 fl (80.0-96.0); MONO # 1.1 10^3/uL (0.0-0.8); MONO % 7.1 % (0.0-5.0); NEUTROPHILS # 11.9 10^3/uL (1.5-8.5); NEUTROPHILS % 74.5 % (36.0-66.0); PLATELET COUNT, AUTOMATED 158 10^3/uL (150-450); RED BLOOD COUNT 3.47 10^6/uL (4.00-5.40)
== END ==
LOC: M LDO 20:02
PROVIDERS: ATTEND Obstetrics & Gynecology
DX: O47.03 False labor before 37 completed weeks of gestation, third trimester (principal); Z3A.35 35 weeks gestation of pregnancy
CPT/HCPCS: 59025; 81001; 82731; 85025; 87086; 87210; G0378; G0463

== ENCOUNTER → 2020-06-21 | Outpatient (CLI) | payer OTHER | LOC: M LDO 17:50 | PROVIDERS: ATTEND Obstetrics & Gynecology | DX: O26.893 Other specified pregnancy related conditions, third trimester (principal); Z3A.36 36 weeks gestation of pregnancy | CPT/HCPCS: 59025; G0378; G0463 ==

== ENCOUNTER 2021-03-23 11:32 | Emergency (ER) | payer OTHER ==
[~2021-03-23] VITALS: Ht 154.9 cm; Wt 51.0 kg
[2021-03-23] MEDS ORDERED: EFFE37.5 PO (11:41)
[2021-03-23] MEDS ORDERED: KETOROLAC 30 MG/ML 1ML VIAL IV ONE ×2 (12:40→15:05)
--- NOTE | 2021-03-23 13:07 | REP ---
INDICATION: flank pain l COMPARISON: None. TECHNIQUE: CT Scan of the abdomen and pelvis was performed without intravenous contrast. Sagittal and coronal reconstruction images performed. FINDINGS: Lung bases: Unremarkable. Liver: Grossly unremarkable. Gallbladder: Unremarkable. Spleen: Grossly unremarkable. Adrenals: Normal. Pancreas: Grossly unremarkable.. Kidneys: No hydronephrosis or nephrolithiasis. Ureters demonstrate no dilatation or calculus. Small and large bowel: Grossly unremarkable. Free fluid: None. Abdominal aorta: No aneurysm. Adenopathy: None. Appendix: Not inflamed. Osseous structures: Unremarkable. Pelvis: No mass. No bladder calculus seen. IMPRESSION: Negative non-contrast CT abdomen and pelvis. <Electronically signed by Mat Reeder > 03/23/21 [id number]
[2021-03-23 14:01] LABS: BASO % 0.4 % (0.0-1.0); EOS # 0.1 10^3/uL (0.0-0.5); EOS % 1.2 % (0.0-3.0); HEMATOCRIT 41.3 % (36.0-47.0); HEMOGLOBIN 13.4 g/dl (12.0-15.5); LYMPH # 2.6 10^3/uL (1.5-5.0); LYMPH % 34.8 % (24.0-44.0); MEAN CORPUSCULAR HEMOGLOBIN 29.8 pg (27.0-33.0); MEAN CORPUSCULAR HGB CONC 32.4 g/dl (32.0-36.5); MEAN CORPUSCULAR VOLUME 91.8 fl (80.0-96.0); MONO # 0.5 10^3/uL (0.0-0.8); MONO % 6.8 % (2.0-8.0); NEUTROPHILS # 4.2 10^3/uL (1.5-8.5); NEUTROPHILS % 56.7 % (36.0-66.0); PLATELET COUNT, AUTOMATED 268 10^3/uL (150-450); WHITE BLOOD COUNT 7.4 10^3/uL (4.0-10.0)
[2021-03-23] MEDS ORDERED: KETOROLAC 60MG 2ML VIAL IM ONE (14:55)
[2021-03-23] MEDS ORDERED: methocarbamoL 500 MG TAB PO ONE (15:05)
[2021-03-23 15:06] LABS: ALBUMIN 4.2 GM/DL (3.2-5.2); ALT/SGPT 17 U/L (12-78); BILIRUBIN,TOTAL 0.5 MG/DL (0.2-1.0); BLOOD UREA NITROGEN 9 MG/DL (7-18); CALCIUM LEVEL 9.3 MG/DL (8.5-10.1); CARBON DIOXIDE LEVEL 29 MEQ/L (21-32); CHLORIDE LEVEL 107 MEQ/L (98-107); GLUCOSE, FASTING 79 MG/DL (70-100); LIPASE 83 U/L (73-393); POTASSIUM SERUM 3.8 MEQ/L (3.5-5.1); SODIUM LEVEL 139 MEQ/L (136-145)
[2021-03-23 15:13] LABS: HCG, SERUM QUALITATIVE NEGATIVE (NEGATIVE)
--- NOTE | 2021-03-23 16:32 | REP ---
INDICATION: abdominal pain. COMPARISON: None. TECHNIQUE: Transabdominal and transvaginal scanning performed. FINDINGS: Uterine dimensions are 8.1 x 4.3 x 5.8 cm. Endometrial echo is 15 mm in AP dimension and centrally placed. The bladder measures 4.7 x 2.0 x 5.5cm. The right ovary has dimensions of 2.2 x 1.9 x 2.1 cm. It's Doppler flow is normal with a resistive index of 0.5. The left ovary dimensions are 3.8 x 2.4 x 2.5 cm. It's Doppler flow was normal with resistive index of 5. Dominant follicle in the left ovary measures 1.9 cm in diameter. There is no other evidence of adnexal mass. There is trace free fluid in the cul-de-sac. IMPRESSION: Dominant follicle left ovary 1.9 cm. No torsion. Trace free fluid. <Electronically signed by Mat Reeder > 03/23/21 [id number]
[2021-03-23 16:55] LABS: CHLAMYDIA DNA AMPLIFICATION NEGATIVE (NEGATIVE); GC DNA AMPLIFICATION NEGATIVE (NEGATIVE)
[2021-03-23 17:47] VITALS: BP 105/78
[2021-03-23] MEDS ORDERED: METH-1164 PO (17:48)
== END 2021-03-23 18:02 | disposition home or self-care (01) ==
LOC: M ED 11:32
DX: N83.02 Follicular cyst of left ovary (principal); M54.9 Dorsalgia, unspecified; R50.9 Fever, unspecified; F41.9 Anxiety disorder, unspecified; F32.9 Major depressive disorder, single episode, unspecified; Z87.442 Personal history of urinary calculi; Z87.448 Personal history of other diseases of urinary system; Z96.0 Presence of urogenital implants; Z88.0 Allergy status to penicillin
CPT/HCPCS: 36415; 74176; 76830; 76856; 80053; 81001; 83690; 84703; 85025; 87210; 87661; 93976; 96374; 99284; J1885

== ENCOUNTER 2021-04-05 15:49 | Emergency (ER) | payer OTHER ==
[~2021-04-05] VITALS: Ht 154.9 cm; Wt 50.3 kg
[~2021-04-05 15:49] MED LIST changes: +EFFE37.5 PO; +METH-1164 PO
[2021-04-05] MEDS ORDERED: ONDANSETRON 4 MG ORAL DISINTEGRATING TAB PO ONE (17:25)
[2021-04-05] MEDS ORDERED: KETOROLAC 60MG 2ML VIAL IM ONE (17:25)
[2021-04-05 18:01] LABS: BASO # 0.1 10^3/uL (0.0-0.2); BASO % 0.6 % (0.0-1.0); EOS # 0.1 10^3/uL (0.0-0.5); EOS % 1.1 % (0.0-3.0); HEMATOCRIT 40.2 % (36.0-47.0); HEMOGLOBIN 12.8 g/dl (12.0-15.5); LYMPH # 2.4 10^3/uL (1.5-5.0); LYMPH % 30.3 % (24.0-44.0); MEAN CORPUSCULAR HEMOGLOBIN 29.4 pg (27.0-33.0); MEAN CORPUSCULAR HGB CONC 31.8 g/dl (32.0-36.5); MEAN CORPUSCULAR VOLUME 92.2 fl (80.0-96.0); MONO # 0.6 10^3/uL (0.0-0.8); MONO % 7.1 % (2.0-8.0); NEUTROPHILS # 4.9 10^3/uL (1.5-8.5); NEUTROPHILS % 60.5 % (36.0-66.0); PLATELET COUNT, AUTOMATED 261 10^3/uL (150-450); RED BLOOD COUNT 4.36 10^6/uL (4.00-5.40)
[2021-04-05 18:21] LABS: BLOOD UREA NITROGEN 12 MG/DL (7-18); CALCIUM LEVEL 8.7 MG/DL (8.5-10.1); CARBON DIOXIDE LEVEL 26 MEQ/L (21-32); CHLORIDE LEVEL 109 MEQ/L (98-107); CREATININE FOR GFR 0.62 MG/DL (0.55-1.30); GLUCOSE, FASTING 83 MG/DL (70-100); POTASSIUM SERUM 3.8 MEQ/L (3.5-5.1); SODIUM LEVEL 139 MEQ/L (136-145)
[2021-04-05 18:25] LABS: ALBUMIN 4.4 GM/DL (3.2-5.2); BILIRUBIN,DIRECT 0.1 MG/DL (0.0-0.2); BILIRUBIN,TOTAL 0.5 MG/DL (0.2-1.0); TOTAL PROTEIN 7.3 GM/DL (6.4-8.2)
[2021-04-05 18:30] LABS: HCG, SERUM QUALITATIVE NEGATIVE (NEGATIVE)
--- NOTE | 2021-04-05 18:41 | REP ---
INDICATION: LLQ abd pain. COMPARISON: Comparison sonography March 23, 2021.. TECHNIQUE: Transabdominal and transvaginal scanning were performed. FINDINGS: Uterine dimensions are normal at 6.9 x 3.6 x 4.3 cm. Endometrial echo is 0.9 cm thick and centrally placed. No free fluid is seen in the cul-de-sac. Visualized bladder easley are smooth. The right ovary has dimensions of 2.1 x 1.6 x 2.4 cm. It's Doppler flow is normal with a resistive index of 0.5. The left ovary dimensions are normal as well at 3.0 x 1.3 x 2.3 cm. It's Doppler flow was normal with resistive index of 0.51. IMPRESSION: Normal pelvic sonography. <Electronically signed by David Bird > 04/05/21 [id number]
[2021-04-05 19:34] VITALS: BP 105/64
== END 2021-04-05 19:40 | disposition home or self-care (01) ==
LOC: M ED 15:49
DX: R10.2 Pelvic and perineal pain (principal); N94.6 Dysmenorrhea, unspecified; Z79.899 Other long term (current) drug therapy; Z88.0 Allergy status to penicillin
CPT/HCPCS: 36415; 76830; 76856; 80047; 80048; 80076; 81001; 83690; 84702; 84703; 85025; 93976; 96372; 99284; J1885; Q0162

== ENCOUNTER 2021-06-05 10:00 | Emergency (ER) | payer OTHER ==
[~2021-06-05] VITALS: Ht 154.9 cm; Wt 49.3 kg
[2021-06-05] MEDS ORDERED: DOXYCYCLINE HYCLATE 100MG TABLET PO ONE (11:50)
[2021-06-05] MEDS ORDERED: FAMOTIDINE 20 MG TAB PO ONE (11:50)
[2021-06-05] MEDS ORDERED: predniSONE 20 MG TAB PO ONE (11:50)
[2021-06-05] MEDS ORDERED: MEDR4PAK PO (11:57)
[2021-06-05] MEDS ORDERED: DOXY1CAP62 PO (11:58)
[2021-06-05] MEDS ORDERED: EPIP0.3I2 IM (11:59)
[2021-06-05 12:07] VITALS: BP 101/65
== END 2021-06-05 12:09 | disposition home or self-care (01) ==
LOC: M ED 10:00
DX: T63.441A Toxic effect of venom of bees, accidental (unintentional), initial encounter (principal); L03.114 Cellulitis of left upper limb; Z88.0 Allergy status to penicillin
CPT/HCPCS: 99283; J7512

== ENCOUNTER 2021-07-07 08:44 | Emergency (ER) | payer OTHER ==
[~2021-07-07] VITALS: Ht 154.9 cm; Wt 47.5 kg
[~2021-07-07 08:44] MED LIST changes: +DOXY1CAP62 PO; +EPIP0.3I2 IM; +MEDR4PAK PO
[2021-07-07] MEDS ORDERED: MIRE1IUD (08:51)
[2021-07-07] MEDS: IBUPROFEN 600MG TAB PO ONE (12:21)
--- NOTE | 2021-07-07 12:45 | REP ---
INDICATION: IUD inserted 2 weeks ago, severe annette pain, bleeding. COMPARISON: 04/05/2021. TECHNIQUE: Transabdominal and transvaginal scanning performed. FINDINGS: Uterine dimensions are 6.7 x 3.7 x 4.4 cm. Endometrial echo is 7 mm in AP dimension and centrally placed. IUD is visualized within the endometrial canal. It appears to be in good position. The bladder measures 1.5 x 1.1cm. The right ovary has dimensions of 2.4 x 1.4 x 2.0 cm. It's Doppler flow is normal with a resistive index of 0.46. The left ovary dimensions are 2.4 x 2.0 x 1.9 cm. It's Doppler flow was normal with resistive index of 0.52. There is no adnexal mass identified. Trace free fluid is seen in the cul-de-sac, likely physiologic. IMPRESSION: IUD appears to be in good position within the endometrial canal. <Electronically signed by Mat Reeder > 07/07/21 [id number]
[2021-07-07 13:05] VITALS: BP 103/61
== END 2021-07-07 13:10 | disposition home or self-care (01) ==
LOC: M ED 08:44
DX: R10.2 Pelvic and perineal pain (principal); Z97.5 Presence of (intrauterine) contraceptive device; F41.9 Anxiety disorder, unspecified; F33.9 Major depressive disorder, recurrent, unspecified; Z88.0 Allergy status to penicillin; Z87.42 Personal history of other diseases of the female genital tract; Z87.442 Personal history of urinary calculi; Z98.890 Other specified postprocedural states; Z80.41 Family history of malignant neoplasm of ovary

== ENCOUNTER → 2021-11-05 | Outpatient (REF) | payer OTHER ==
[~2021-11-05] MED LIST changes: +DOXY-443 PO; -DOXY1CAP62 PO; +MECL-136 PO; +MIRE1IUD
[2021-11-05 17:38] LABS: APPEARANCE, URINE CLEAR (CLEAR); BACTERIA, URINE AUTO 1+ (NEGATIVE); BILIRUBIN, URINE AUTO NEGATIVE (NEGATIVE); BLOOD, URINE BLOOD NEGATIVE (NEGATIVE); COLOR, URINE YELLOW (YELLOW); GLUCOSE, URINE (UA) AUTO NEGATIVE (NEGATIVE); KETONE, URINE AUTO NEGATIVE (NEGATIVE); LEUKOCYTE ESTERASE, URINE AUTO TRACE (NEGATIVE); MUCUS, URINE SMALL (NEGATIVE); NITRITE, URINE AUTO NEGATIVE (NEGATIVE); PROTEIN, URINE AUTO NEGATIVE (NEGATIVE); RBC, URINE AUTO 1 /HPF (0-3); SPECIFIC GRAVITY URINE AUTO 1.024 (1.002-1.035); SQUAMOUS EPITHELIAL CELL UR AU 3 /HPF (0-6); UROBILINOGEN, URINE AUTO 0.2 mg/dL (0.0-2.0); WBC, URINE AUTO 4 /HPF (0-3)
== END ==
LOC: M LAB REF 17:04
PROVIDERS: ATTEND Physician Assistant Medical
DX: N39.0 Urinary tract infection, site not specified (principal)

== ENCOUNTER 2021-12-18 17:26 | Emergency (ER) | payer OTHER ==
[~2021-12-18] VITALS: Ht 154.9 cm; Wt 45.0 kg
[~2021-12-18 17:26] MED LIST changes: -MECL-136 PO
[2021-12-18 17:34] VITALS: BP 121/55
== END 2021-12-18 18:09 | disposition left against medical advice (07) ==
LOC: M ED 17:26
DX: Z53.21 Procedure and treatment not carried out due to patient leaving prior to being seen by health care provider (principal)

== ENCOUNTER 2022-01-16 12:03 | Day surgery (SDC) | payer OTHER ==
[~2022-01-16] VITALS: Ht 165.1 cm; Wt 43.5 kg
[~2022-01-16 12:03] MED LIST changes: +MECL-136 PO; +NS 1,000 ML IV ONE
[2022-01-16] MEDS ORDERED: LIDOCAINE 2% 100MG/5ML SDV (FOR ANES.) As Ordered ONE (12:21)
[2022-01-16] MEDS ORDERED: propofoL 500 MG/50 ML VIAL As Ordered ONE (12:21)
[2022-01-16] MEDS ORDERED: fentaNYL 100 MCG/2 ML INJECTION As Ordered ONE (12:22)
[2022-01-16 13:55] VITALS: BP 136/72
== END 2022-01-16 14:00 | disposition home or self-care (01) ==
LOC: M OPP 12:03
PROVIDERS: ATTEND Internal Medicine Gastroenterology
DX: K63.89 Other specified diseases of intestine (principal); K31.89 Other diseases of stomach and duodenum; R63.4 Abnormal weight loss; K59.00 Constipation, unspecified; F17.210 Nicotine dependence, cigarettes, uncomplicated; Z88.0 Allergy status to penicillin; Z97.5 Presence of (intrauterine) contraceptive device
CPT/HCPCS: 43239; 45380; 88305; J3010

== ENCOUNTER 2022-02-06 02:29 | Emergency (ER) | payer OTHER ==
[~2022-02-06] VITALS: Ht 154.9 cm; Wt 44.1 kg
[~2022-02-06 02:29] MED LIST changes: -NS 1,000 ML IV ONE
[2022-02-06] MEDS ORDERED: KETOROLAC 60MG 2ML VIAL IM ONE (03:55)
[2022-02-06 04:35] LABS: BASO # 0.1 10^3/uL (0.0-0.2); BASO % 0.6 % (0.0-1.0); EOS # 0.2 10^3/uL (0.0-0.5); EOS % 2.4 % (0.0-3.0); HEMATOCRIT 35.1 % (36.0-47.0); HEMOGLOBIN 11.5 g/dl (12.0-15.5); LYMPH # 3.1 10^3/uL (1.5-5.0); LYMPH % 37.2 % (24.0-44.0); MEAN CORPUSCULAR HEMOGLOBIN 29.9 pg (27.0-33.0); MEAN CORPUSCULAR HGB CONC 32.8 g/dl (32.0-36.5); MEAN CORPUSCULAR VOLUME 91.4 fl (80.0-96.0); MONO # 0.5 10^3/uL (0.0-0.8); MONO % 5.9 % (2.0-8.0); NEUTROPHILS # 4.4 10^3/uL (1.5-8.5); NEUTROPHILS % 53.5 % (36.0-66.0); PLATELET COUNT, AUTOMATED 174 10^3/uL (150-450); RED BLOOD COUNT 3.84 10^6/uL (4.00-5.40); WHITE BLOOD COUNT 8.3 10^3/uL (4.0-10.0)
[2022-02-06 05:01] LABS: HCG, SERUM QUALITATIVE NEGATIVE (NEGATIVE)
[2022-02-06 05:02] LABS: ALBUMIN 3.9 GM/DL (3.2-5.2); ALT/SGPT 26 U/L (12-78); AMYLASE 26 U/L (25-115); BILIRUBIN,DIRECT 0.1 MG/DL (0.0-0.2); BILIRUBIN,TOTAL 0.3 MG/DL (0.2-1.0); BLOOD UREA NITROGEN 12 MG/DL (7-18); CALCIUM LEVEL 8.8 MG/DL (8.5-10.1); CARBON DIOXIDE LEVEL 23 MEQ/L (21-32); CHLORIDE LEVEL 107 MEQ/L (98-107); CREATININE FOR GFR 0.53 MG/DL (0.55-1.30); GLOMERULAR FILTRATION RATE > 60.0 (>60); GLUCOSE, FASTING 85 MG/DL (70-100); LIPASE 117 U/L (73-393); POTASSIUM SERUM 3.9 MEQ/L (3.5-5.1); SODIUM LEVEL 137 MEQ/L (136-145); TOTAL PROTEIN 6.5 GM/DL (6.4-8.2)
[2022-02-06 06:43] VITALS: BP 103/60
== END 2022-02-06 07:26 | disposition home or self-care (01) ==
LOC: M ED 02:29
DX: R07.89 Other chest pain (principal); G43.909 Migraine, unspecified, not intractable, without status migrainosus; R11.0 Nausea; R42 Dizziness and giddiness; Z97.5 Presence of (intrauterine) contraceptive device; Z88.0 Allergy status to penicillin
CPT/HCPCS: 70450; 71045; 80048; 80076; 81001; 82150; 83690; 84703; 85025; 87798; 96372; 99284; J1885

== ENCOUNTER → 2022-03-19 | Outpatient (REF) | payer OTHER | LOC: M LAB REF 15:40 | PROVIDERS: ATTEND Physician Assistant Medical | DX: J02.9 Acute pharyngitis, unspecified (principal) ==

== ENCOUNTER 2022-10-09 15:21 | Emergency (ER) | payer OTHER ==
[~2022-10-09] VITALS: Ht 154.9 cm; Wt 48.8 kg
[2022-10-09] MEDS ORDERED: SERT50TA29 (15:55)
[2022-10-09] MEDS ORDERED: RISP0.253 (15:55)
[2022-10-09 18:10] LABS: BASO % 0.5 % (0.0-1.0); EOS # 0.2 10^3/uL (0.0-0.5); EOS % 1.8 % (0.0-3.0); HEMATOCRIT 38.9 % (36.0-47.0); HEMOGLOBIN 12.4 g/dl (12.0-15.5); LYMPH # 2.5 10^3/uL (1.5-5.0); LYMPH % 29.3 % (24.0-44.0); MEAN CORPUSCULAR HEMOGLOBIN 30.3 pg (27.0-33.0); MEAN CORPUSCULAR HGB CONC 31.9 g/dl (32.0-36.5); MEAN CORPUSCULAR VOLUME 95.1 fl (80.0-96.0); MONO # 0.5 10^3/uL (0.0-0.8); MONO % 5.4 % (2.0-8.0); NEUTROPHILS # 5.3 10^3/uL (1.5-8.5); NEUTROPHILS % 62.8 % (36.0-66.0); PLATELET COUNT, AUTOMATED 271 10^3/uL (150-450); RED BLOOD COUNT 4.09 10^6/uL (4.00-5.40); WHITE BLOOD COUNT 8.4 10^3/uL (4.0-10.0)
[2022-10-09 18:50] VITALS: BP 111/74
[2022-10-09 19:42] LABS: BLOOD UREA NITROGEN 14 MG/DL (9-23); CALCIUM LEVEL 8.7 MG/DL (8.5-10.1); CARBON DIOXIDE LEVEL 26 MMOL/L (20-31); CHLORIDE LEVEL 102 MMOL/L (98-107); CREATININE FOR GFR 0.54 MG/DL (0.55-1.30); GLOMERULAR FILTRATION RATE > 60.0 (>60); GLUCOSE, FASTING 90 MG/DL (60-100); POTASSIUM SERUM 4.3 MMOL/L (3.5-5.1); SODIUM LEVEL 136 MMOL/L (136-145)
== END 2022-10-09 18:51 | disposition home or self-care (01) ==
LOC: M ED 15:21
DX: N63.20 Unspecified lump in the left breast, unspecified quadrant (principal); N64.4 Mastodynia; R10.2 Pelvic and perineal pain; R11.0 Nausea; J45.909 Unspecified asthma, uncomplicated; Z88.0 Allergy status to penicillin; Z79.899 Other long term (current) drug therapy

== ENCOUNTER → 2022-10-24 | Outpatient (CLI) | payer OTHER ==
[~2022-10-24] MED LIST changes: +RISP0.253; +SERT50TA29
== END ==
LOC: M WHC 09:29
PROVIDERS: ATTEND Physician Assistant Medical
DX: N60.12 Diffuse cystic mastopathy of left breast (principal)